=== PATIENT | female | born 1955 | race Caucasian/White ===

== ENCOUNTER → 2017-10-04 | Outpatient (CLI) | payer OTHER | LOC: FIMAGING 09:34 | PROVIDERS: ATTEND Family Medicine | DX: Z12.31 Encounter for screening mammogram for malignant neoplasm of breast (principal) ==

== ENCOUNTER → 2017-10-10 | Outpatient (CLI) | payer OTHER | LOC: FIMAGING 10:02 | PROVIDERS: ATTEND Family Medicine | DX: N63.20 Unspecified lump in the left breast, unspecified quadrant (principal); E11.9 Type 2 diabetes mellitus without complications; I10 Essential (primary) hypertension ==

== ENCOUNTER → 2018-07-10 | Outpatient (CLI) | payer OTHER | LOC: FIMAGING 11:56 | PROVIDERS: ATTEND Family Medicine | DX: R59.9 Enlarged lymph nodes, unspecified (principal) ==

== ENCOUNTER → 2018-11-21 | Outpatient (CLI) | payer OTHER | LOC: FIMAGING 14:43 | PROVIDERS: ATTEND Family Medicine | DX: Z12.31 Encounter for screening mammogram for malignant neoplasm of breast (principal) ==

== ENCOUNTER 2018-12-18 08:39 | Emergency (ER) | payer OTHER ==
[2018-12-18] MEDS ORDERED: NS 1,000 ML IV ONE (08:50)
--- NOTE | 2018-12-18 08:53 | EDPHY ---
HPI/HX/ROS/PE/MDM Narrative: CHIEF COMPLAINT: Lightheadedness, imbalance HPI: This patient is a 63-year-old female with history of hypertension and pre- diabetes. She arrives today via EMS from urgent care. Woke this morning around 6 :30 and was unable to walk straight, listing towards the left "like when you're on a ship". She denies any room-spinning sensation. She is pre-diabetic and reports her BGL was 190 this morning, higher than it has been before. She told her about her symptoms and he encouraged her to present to urgent care. Urgent care referred her here. She notes she has pain in her right chest similar to a "gas pain" that has been ongoing for two days. The patient denies any headache currently. She has had subconjunctival hemorrhage in the past and has followed up with ophthalmology regarding this. She denies any history of cardiac problems. She does have family history of CVA in mother and grandmother. She denies shortness of breath, nausea, numbness or weakness in her extremities, or other associated symptoms. REVIEW OF SYSTEMS: A comprehensive 10 system review of systems is otherwise negative aside from elements mentioned in the history of present illness and medical decision making. PMH: Pre-diabetic. Hypertension. SOCIAL HISTORY: . at bedside. Lives in [place]. PHYSICAL EXAM: General:Patient is alert, in no acute distress. ENT:Eyes are normal to inspection. ENT inspection normal. Neck: Normal inspection. Full range of motion. Respiratory:No respiratory distress. Breath sounds normal bilaterally. Cardiovascular: Regular rate and rhythm. Strong peripheral pulses. Normal cap refill. Abdomen:The abdomen is nontender to palpation. There are no peritoneal signs. There are normal bowel sounds. Back: Normal to inspection. No tenderness to palpation. Skin: Normal color. No rash. Warm and dry. Extremities: Normal appearance. Full range of motion. Neuro: Oriented x3. Normal motor function and strength. Normal sensory function. No pronator drift. Normal [id number]. No dysdiadochokinesia. ED Course: 63 y/o female presents with lightheadedness and a sensation of imbalance towards the left which began upon waking this morning. Her exam today is unremarkable, she is neurologically intact. Plan for CT head, EKG, labs including CBC, chemistries, POC troponin. Plan to administer 1L IV NS. EKG was ordered and interpreted by myself. Please see [facility] system for official reading. Sinus rhythm, no evidence of ischemia. Reviewed laboratory studies. Troponin negative. BGL 177. Labs otherwise largely unremarkable. 09:[address] Valdez, radiologist. CT head is negative for acute processes. Plan to road test patient. 10:18 Reassessed. Discussed imaging and laboratory results. Patient now recalls a sensation in her left leg as if it was floppy and difficult to control. No weakness or other deficit noted on my exam. Her sensation of imbalance is somewhat lessened but persists. Plan for MRI brain for further evaluation. 11:[address] Haro, radiologist. MRI brain is negative for acute processes. Reassessed. Discussed MRI results. She is relieved that there are not acute intracranial processed noted today. Plan to discharge home in good condition with referral to neurology for further evaluation. Follow up and return precautions discussed. She is comfortable with this plan. MDM: This patient presents with dizziness and some lifting to the left side while walking at home. It is somewhat difficult to tease out whether this represents a primary balance issue vs. a leg weakness issue. We erred on side of caution to exclude TIA/CVA. Patient has normal MRI and symptoms have completely resolved - gait is normal. I think this most likely represents an atypical vertigo, but patient understands we cannot fully rule out TIA. I have referred her to Neurology and we discussed the fact that she needs to return to the emergency department immediately should symptoms recur or worsen. - Data Points Imaging Results: Imaging Impressions Head CT 12/18/18 08:50 Impression: No acute intracranial findings. If symptoms persist and clinical suspicion warrants, consider MRI. Findings discussed with Christopher Nelson MD 12/18/2018 at 9:40. Brain MRI 12/18/18 10:22 Impression: Negative MRI of the brain without contrast. No evidence of acute CVA. 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 Results called to Dr. Christopher Nelson at 11:25 AM. Imaging: Discussed imaging studies w/ call out operator Radiologist Laboratory Results: Laboratory Results 12/18/18 08:45 12/18/18 08:45 12/18/18 12/18/18 12/18/18 08:53 08:45 08:45 WBC 11.09 10^3/uL H 10^3/uL (3.80-9.50) RBC 4.43 10^6/uL 10^6/uL (4.18-5.33) Hgb 14.4 g/dL g/dL (12.6-16.3) Hct 41.8 % % (38.0-47.0) MCV 94.4 fL fL (81.5-99.8) MCH 32.5 pg pg (27.9-34.1) MCHC 34.4 g/dL g/dL (32.4-36.7) RDW 12.4 % % (11.5-15.2) Plt Count 189 10^3/uL 10^3/uL (150-400) MPV 10.5 fL fL (8.7-11.7) Neut % (Auto) Not Reported Lymph % (Auto) Not Reported Brooke % (Auto) Not Reported Eos % (Auto) Not Reported Baso % (Auto) Not Reported Nucleat RBC Rel Count Not Reported Absolute Neuts (auto) Not Reported Absolute Lymphs (auto) Not Reported Absolute Monos (auto) Not Reported Absolute Eos (auto) Not Reported Absolute Basos (auto) Not Reported Absolute Nucleated RBC Not Reported Immature Gran % Not Reported Seg Neutrophils % 35.0 % % Band Neutrophils % 0.0 % % Lymphocytes % 60.0 % % Monocytes % 2.0 % % Eosinophils % 2.0 % % Basophils % 1.0 % % Metamyelocytes % 0.0 % % Myelocytes % 0.0 % % Promyelocytes % 0.0 % % Blast Cells % 0.0 % % Immature Gran # Not Reported Absolute Seg Neuts 3.88 10^3/uL 10^3/uL (1.70-6.50) Absolute Band Neuts 0.00 10^3/uL 10^3/uL (0.00-0.70) Absolute Lymphocytes 6.65 10^3/uL H 10^3/uL (1.00-3.00) Absolute Monocytes 0.22 10^3/uL L 10^3/uL (0.30-0.80) Absolute Eosinophils 0.22 10^3/uL 10^3/uL (0.03-0.40) Absolute Basophils 0.11 10^3/uL H 10^3/uL (0.02-0.10) Absolute Metamyelocyte 0.00 10^3/mL 10^3/mL (0.00-0.00) Absolute Myelocytes 0.00 10^3/mL 10^3/mL (0.00-0.00) Absolute Promyelocytes 0.00 10^3/uL 10^3/uL (0.00-0.00) Absolute Plasma Cells 0.00 10^3/uL 10^3/uL (0.00-0.00) RBC/WBC/PLT Morphology NORMAL (NORMAL) Atypical Lymphocytes 1+ H Absolute Blast Cells 0.00 10^3/uL 10^3/uL (0.00-0.00) Plasma Cells % 0.0 % % Smudge Cells 2+ H Platelet Estimate ADEQUATE (ADEQ) Smear Review By Pending Sodium 139 mEq/L mEq/L (135-145) Potassium 4.0 mEq/L mEq/L (3.5-5.2) Chloride 102 mEq/L mEq/L (97-110) Carbon Dioxide 25 mEq/l mEq/l (22-31) Anion Gap 12 mEq/L mEq/L (6-14) BUN 16 mg/dL mg/dL (7-23) Creatinine 0.8 mg/dL mg/dL (0.6-1.0) Estimated GFR > 60 Glucose 177 mg/dL H mg/dL (70-100) Calcium 9.7 mg/dL mg/dL (8.5-10.4) POC Troponin I 0.00 ng/mL ng/mL (0.00-0.08) Medications Given: Discontinued Medications Sodium Chloride (Ns) 1,000 mls @ 0 mls/hr IV EDNOW ONE; Wide Open PRN Reason: Protocol Stop: 12/18/18 08:51 Last Admin: 12/18/18 09:00 Dose: 1,000 mls Point of Care Test Results: Chemistry 12/18/18 08:53 POC Troponin I 0.00 ng/mL ng/mL (0.00-0.08) General Time Seen by Provider: 12/18/18 08:41 Initial Vital Signs: Initial Vital Signs Temperature (C) 36.7 C 12/18/18 08:42 Heart Rate 70 12/18/18 08:42 Respiratory Rate 16 12/18/18 08:42 Blood Pressure 176/134 H 12/18/18 08:42 O2 Sat (%) 93 12/18/18 08:42 O2 Delivery Mode Room Air Allergies/Adverse Reactions: Sulfa (Sulfonamide Antibiotics) Allergy (Verified 12/18/18 08:42) Home Medications: Medication Instructions Recorded Atenolol 12/18/18 HCTZ (*) 12/18/18 SIMVASTATIN 12/18/18 Departure - Departure Disposition: Home, Routine, Self-Care Clinical Impression: Dizziness Condition: Good Instructions: Lightheadedness (ED), Dizziness (ED) Additional Instructions: Drink plenty of fluids. Return to the emergency department immediately for headache, numbness, weakness , dizziness or vertigo, neck pain, inability to tolerate fluids by mouth or other worsening of condition. Follow up with your primary care physician in 2-3 days. Follow up with a neurologist as we discussed, within one week, for further evaluation. Referrals: Lokesh Saini MD [Medical Doctor] - As per Instructions Report Scribed for: Christopher Nelson Report Scribed by: Nai Lau Date of Report: 12/18/18 Time of Report: 08:53 Physician Review and Approval Statement: Portions of this note were transcribed by an ED scribe. I personally performed the history, physical exam, and medical decision making; and confirm the accuracy of the information in the transcribed note.
[2018-12-18 08:59] LABS: PLATELET COUNT 189 10^3/uL (150-400)
--- NOTE | 2018-12-18 10:49 | CPEKG ---
Test Reason : OPEN Blood Pressure : / mmHG Vent. Rate : 064 BPM Atrial Rate : 064 BPM P-R Int : 142 ms QRS Dur : 084 ms QT Int : 408 ms P-R-T Axes : 021 032 039 degrees QTc Int : 421 ms Sinus rhythm Confirmed by Christopher Nelson ([id number]) on 12/18/2018 10:48:45 AM Referred By: Christopher Nelson Confirmed By:Christopher Nelson
[2018-12-18 11:41] VITALS: BP 140/101
== END 2018-12-18 11:44 | disposition home or self-care (01) ==
LOC: EDUNIT#
DX: R42 Dizziness and giddiness (principal); E86.9 Volume depletion, unspecified; I10 Essential (primary) hypertension; R73.03 Prediabetes
CPT/HCPCS: 70551-PN; 84484-ER